=== PATIENT | female | born 1990 | race American Indian/Alaskan Native ===

== ENCOUNTER 2017-01-03 23:39 | Emergency (ER) | payer OTHER ==
[2017-01-04] VITALS: BP 125/65
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
== END 2017-01-04 03:22 | disposition home or self-care (01) ==
LOC: ED 23:39
DX: S16.1XXA Strain of muscle, fascia and tendon at neck level, initial encounter (principal); M54.6 Pain in thoracic spine; J33.9 Nasal polyp, unspecified; V89.2XXA Person injured in unspecified motor-vehicle accident, traffic, initial encounter; Y93.89 Activity, other specified; Y92.89 Other specified places as the place of occurrence of the external cause; Y99.8 Other external cause status
CPT/HCPCS: 72072; 72125; 99284

== ENCOUNTER 2017-04-27 17:08 | Emergency (ER) | payer SELFPAY | END 2017-04-27 17:47 | disposition left against medical advice (07) | LOC: ED 17:08 | DX: L08.9 Local infection of the skin and subcutaneous tissue, unspecified (principal); Z53.21 Procedure and treatment not carried out due to patient leaving prior to being seen by health care provider ==

== ENCOUNTER 2017-04-27 20:22 | Emergency (ER) | payer SELFPAY ==
[2017-04-27 23:36] VITALS: BP 107/70
== END 2017-04-27 23:45 | disposition left against medical advice (07) ==
LOC: ED 20:22
DX: M79.644 Pain in right finger(s) (principal); Z53.21 Procedure and treatment not carried out due to patient leaving prior to being seen by health care provider

== ENCOUNTER 2017-04-28 11:18 | Emergency (ER) | payer SELFPAY ==
[2017-04-28] MEDS ORDERED: BOOSTRIX IM ONE (13:44)
--- NOTE | 2017-04-28 13:55 | Emergency Department Report ---
ED Upper Extremity Inj HPI - General Chief Complaint: Extremity Injury, Upper Stated Complaint: NAIL INFECTION Time Seen by Provider: 04/28/17 13:20 Source: patient Mode of arrival: Ambulatory Limitations: No Limitations - History of Present Illness Initial Comments: This is a 26-year-old female that presents with a contusion to the right index finger. Patient stated 2 weeks ago she twisted finger inverted when she was placing a book on the table. Patient states that her artificial nail has broken half and patient stated she is concerned that her nail also injured. She denies any bleeding or numbness or tingling. Denies decreased range of motion. Denies nausea, vomiting, chest pain, shortness of breath, pus, drainage , numbness, tingling, decreased range of motion, joint swelling or joint redness. Patient denies any allergies or past medical history. Patient's complaining of right index distal pain radiating 7 out of 10. MD Complaint: Injury to:: right, finger -: Gradual, week(s) (2) Other Extremity Injury: Fingers: Right Other Injuries: none Place: home Severity scale (0 -10): 7 Improves With: none Worsens With: none Context: direct blow Associated Symptoms: denies other symptoms. denies: weakness, numbness, neck pain, suspects foreign body, nausea/vomiting, heard/felt popping sensat - Related Data Previous Rx's Medication Instructions Recorded Last Taken Type Cyclobenzaprine HCl [Flexeril 5 MG 5 mg PO TID PRN #18 tab 01/04/17 Unknown Rx TAB] Mometasone Furoate [Nasonex] 2 spray NS QDAY #1 bottle 01/04/17 Unknown Rx Naproxen [Naprosyn TAB] 500 mg PO BID #20 tablet 01/04/17 Unknown Rx traMADol [Ultram 50 MG tab] 50 mg PO Q4HR PRN #20 tablet 01/04/17 Unknown Rx Ibuprofen [Motrin 600 MG tab] 600 mg PO Q8H PRN #30 tablet 04/28/17 Unknown Rx Allergies Allergy/AdvReac Type Severity Reaction Status Date / Time No Known Allergies Allergy Verified 04/28/17 11:31 ED Review of Systems ROS: Stated complaint: NAIL INFECTION Other details as noted in HPI Constitutional: denies: chills, fever Eyes: denies: eye pain, eye discharge, vision change ENT: denies: ear pain, throat pain Respiratory: denies: cough, shortness of breath, wheezing Cardiovascular: denies: chest pain, palpitations Endocrine: no symptoms reported Gastrointestinal: denies: abdominal pain, nausea, diarrhea Genitourinary: denies: urgency, dysuria, discharge Musculoskeletal: denies: back pain, joint swelling, arthralgia Skin: denies: rash, lesions Neurological: denies: headache, weakness, paresthesias Psychiatric: denies: anxiety, depression Hematological/Lymphatic: denies: easy bleeding, easy bruising ED Past Medical Hx - Past Medical History Previous Medical History?: No - Surgical History Additional Surgical History: Nasal - Social History Smoking Status: Never Smoker Substance Use Type: None - Medications Home Medications: Home Medications Medication Instructions Recorded Confirmed Last Taken Type Cyclobenzaprine HCl [Flexeril 5 MG 5 mg PO TID PRN #18 tab 01/04/17 Unknown Rx TAB] Mometasone Furoate [Nasonex] 2 spray NS QDAY #1 bottle 01/04/17 Unknown Rx Naproxen [Naprosyn TAB] 500 mg PO BID #20 tablet 01/04/17 Unknown Rx traMADol [Ultram 50 MG tab] 50 mg PO Q4HR PRN #20 tablet 01/04/17 Unknown Rx Ibuprofen [Motrin 600 MG tab] 600 mg PO Q8H PRN #30 tablet 04/28/17 Unknown Rx ED Physical Exam - General Limitations: No Limitations General appearance: alert, in no apparent distress - Head Head exam: Present: atraumatic, normocephalic, normal inspection - Eye Eye exam: Present: normal appearance, PERRL, EOMI. Absent: scleral icterus, conjunctival injection, nystagmus, periorbital swelling, periorbital tenderness Pupils: Present: normal accommodation - ENT ENT exam: Present: normal exam, normal orophraynx, mucous membranes moist, TM's normal bilaterally, normal external ear exam - Neck Neck exam: Present: normal inspection, full ROM. Absent: tenderness, meningismus, lymphadenopathy, thyromegaly - Respiratory Respiratory exam: Present: normal lung sounds bilaterally. Absent: respiratory distress, wheezes, rales, rhonchi, stridor, chest wall tenderness, accessory muscle use, decreased breath sounds, prolonged expiratory - Cardiovascular Cardiovascular Exam: Present: regular rate, normal rhythm, normal heart sounds. Absent: bradycardia, tachycardia, irregular rhythm, systolic murmur, diastolic murmur, rubs, gallop - GI/Abdominal GI/Abdominal exam: Present: soft, normal bowel sounds. Absent: distended, tenderness, guarding, rebound, rigid, diminished bowel sounds - Rectal Rectal exam: Present: deferred - Extremities Exam Extremities exam: Present: normal inspection, full ROM, tenderness, normal capillary refill. Absent: pedal edema, joint swelling, calf tenderness - Expanded Upper Extremity Exam Right General: Present: normal inspection Shoulder Exam: Present: normal inspection, full ROM Upper Arm exam: Present: normal inspection, full ROM Elbow exam: Present: normal inspection, full ROM Forearm Wrist exam: Present: normal inspection, full ROM Hand Wrist exam: Present: normal inspection, full ROM, tenderness, other ( cracked in half artifical nail with no signs of patients nail involvement. ). Absent: swelling, abrasion, laceration, ecchymosis, deformity, crepidus, dislocation, erythema, amputation, nail avulsion, subungual hematoma Hand L/R Back: 1 - tenderness Neuro motor exam: Present: wrist extension intact, thumb opposition intact, thumb IP flexion intact, thumb adduction intact, fingers 2-5 abduction intact Neurosensory exam: Present: 2-point discrimination, radial nerve intact, ulnar nerve intact, median nerve intact Vascular: Present: vascular compromise, normal capillary refill, radial pulse, brachial pulse, ulnar pulse - Back Exam Back exam: Present: normal inspection, full ROM. Absent: tenderness, CVA tenderness (R), CVA tenderness (L), muscle spasm, paraspinal tenderness, vertebral tenderness, rash noted - Neurological Exam Neurological exam: Present: alert, oriented X3, CN II-XII intact, normal gait, reflexes normal - Psychiatric Psychiatric exam: Present: normal affect, normal mood - Skin Skin exam: Present: warm, dry, intact, normal color. Absent: rash ED Course Vital Signs 04/28/17 11:31 Temperature 98.9 F Pulse Rate 70 Respiratory 18 Rate Blood Pressure 110/73 O2 Sat by Pulse 98 Oximetry - Reevaluation(s) Reevaluation #1: 10/17/17 13:59 Patient is speaking in full sentences with no signs of distress noted. ED Medical Decision Making - Medical Decision Making 26-year-old female that presents with a contusion to the right index finger. X- ray has been obtained of right finger and the radiologist with negative findings of any abnormalities, fractures or dislocation. Patient was notified of x-ray results with no further question about the patient. Patient received ibuprofen 800 mg by mouth in the ED for pain. Patient was instructed to follow- up with a primary care doctor/Dr. Colby in 3-5 days or if symptoms worsen and continue return to emergency room as soon as possible possible. Patient is hemodynamically stable with stable vital signs. Patient states he is feeling better. At time time of discharge, the patient does not seem toxic or ill in appearance. No acute signs of distress noted. Patient agrees to discharge treatment plan of care. No further questions noted by the patient. Critical care attestation.: If time is entered above; I have spent that time in minutes in the direct care of this critically ill patient, excluding procedure time. ED Disposition Clinical Impression: Contusion Qualifiers: Encounter type: initial encounter Contusion area: finger Finger: index finger Damage to nail status: without damage Laterality: right Qualified Code(s): S60.021A - Contusion of right index finger without damage to nail, initial encounter Finger sprain Qualifiers: Encounter type: initial encounter Finger: index finger Sprain of finger site: unspecified site Laterality: right Qualified Code(s): S63.610A - Unspecified sprain of right index finger, initial encounter Disposition: - TO HOME OR SELFCARE Is pt being admited?: No Does the pt Need Aspirin: No Condition: Stable Instructions: Contusion in Adults (ED), Finger Sprain (ED), RICE Therapy (ED), Ibuprofen (By mouth) Additional Instructions: Rest and ice extremity. Follow-up with primary care doctor/Dr. Colby in 3-5 days or if symptoms worsen and continue return to emergency room as soon as possible possible. Prescriptions: Ibuprofen [Motrin 600 MG tab] 600 mg PO Q8H PRN #30 tablet PRN Reason: Pain Referrals: PRIMARY CARE, [Primary Care Provider] - 3-5 Days OLEKSANDR COLBY MD [Staff Physician] - 3-5 Days YOANNA DUFF MD [Staff Physician] - 3-5 Days [facility] [Outside] - 3-5 Days [facility] [Outside] - 3-5 Days Forms: Work/School Release Form(ED)
--- NOTE | 2017-04-28 14:27 | XRay Report ---
RIGHT INDEX FINGER: History: Pain. The bony architecture is intact. Bony alignment is normal. No soft tissue abnormalities are seen. The joint spaces appear preserved. IMPRESSION: Normal right index finger.
[2017-04-28 14:46] VITALS: BP 110/74
== END 2017-04-28 14:44 | disposition home or self-care (01) ==
LOC: ED 11:18
DX: S60.021A Contusion of right index finger without damage to nail, initial encounter (principal); S63.610A Unspecified sprain of right index finger, initial encounter; X58.XXXA Exposure to other specified factors, initial encounter; Y93.89 Activity, other specified; Y92.89 Other specified places as the place of occurrence of the external cause; Y99.8 Other external cause status
CPT/HCPCS: 99283